=== PATIENT | female | born 1955 | race Caucasian/White ===

== ENCOUNTER 2024-07-25 13:47 | Emergency (ER) | payer MEDICARE, OTHER ==
[~2024-07-25] VITALS: Ht 167.6 cm; Wt 71.0 kg
--- NOTE | 2024-07-25 15:05 | RADIOLOGY REPORT ---
INDICATION: pain TECHNIQUE: 3 views of the lumbar spine were obtained. COMPARISON: None FINDINGS: There are no acute fractures or subluxations. Mild degenerative changes of the spine are noted. IMPRESSION: No acute fracture or subluxation.
--- NOTE | 2024-07-25 16:07 | Physician Documentation ---
History of Present Illness ~ Chief Complaint: Back Pain Stated Complaint: BACK PAIN Time Seen by MD: 14:54 Primary Medical Doctor: Mathew Pappas [facility] HPI 68-year-old female presents to the ED for acute onset left lumbar pain. States that she has been in the process of getting her house in [place], doing excessive outside work. States today she leaned over and injured her lumbar region further Day of Onset: July 25, 2024 Medication Reconciliation Allergies: Coded Allergies: prochlorperazine (Verified Adverse Reaction, Severe, extrapyramidal effects, 07/25/24) Scheduled Cyclobenzaprine HCl (Cyclobenzaprine HCl), 1 TAB PO Q8H Lidocaine (Lidoderm), 1 PATCH TOP DAILY Naproxen (Naproxen), 1 TAB PO Q12H Scheduled PRN Hydrocodone Bit/Acetaminophen 5/325 MG ([place] 5/325 MG), 1 TAB PO Q6H PRN for pain Past Medical History Smoking Status: Never smoker Review of Systems All Other Systems at this time: Reviewed and Negative ROS As stated above in the HPI, otherwise all systems are reviewed and negative. Physical Exam Physical Exam Vital Signs: Temperature: 98.0, Source: Temporal, Heart Rate: 73, Respiratory Rate: 20, BP: 167/82, Pulse Oximetry: 99, Weight: 71.000 Oxygen Flow Rate: 0 Physical Exam General: Alert, no apparent distress. back: tender to lumbar region Respiratory: Lungs clear, no respiratory distress. Neurologic: Oriented x4. Psychiatric: Normal mood and affect. Skin: Normal color, warm and dry. No edema, no ecchymosis. Progress Results/Orders Results/Orders Completed Orders - MATHEW BAH NP Ketorolac Trometh 30mg/Ml Vial (Toradol (07/25/24 15:45) Hydrocodone/Apap 10/325 ([place] 10/325mg (07/25/24 15:45) Lidocaine 5% Patch (Lidoderm 5% Patch) (07/25/24 15:45) Medications Received in ER Medications (Trade) Dose Ordered Sig/Comfort Route PRN Reason Start Time Stop Time Status Last Admin Dose Admin (Toradol inj. 30mg/ml) 30 mg ONCE ONCE IM 07/25/24 15:45 07/25/24 15:47 DC 07/25/24 16:18 30 MG ([place] 10/325mg tab) 1 tab ONCE ONCE PO 07/25/24 15:45 07/25/24 15:47 DC 07/25/24 16:18 1 TAB (Lidoderm 5% Patch) 1 patch NOW ONCE TP 07/25/24 15:45 07/25/24 15:47 DC 07/25/24 16:19 1 PATCH Vital Signs 07/25/24 07/25/24 07/25/24 13:49 15:06 16:15 Temp 98.0 98.0 98.0 Pulse 75 73 68 Resp 16 20 18 B/P (MAP) 167/86 167/82 (110) 155/87 (109) Pulse Ox 99 99 98 O2 Flow Rate 0 0 0 Medical Decision Making Findings Patient presents with acute back pain likely secondary to a lumbar strain from lifting than moving objects in order to move her house her estradiol. He is not have any red flag symptoms denies any numbness does report left-sided sciatica. Going to treat her here an 80 send her home with naproxen and lidocaine patches along with cyclobenzaprine Differential Dx:Considerations: Include: AAA, Aortic dissection, , Appendicitis, Bowel obstruction, Cholelithiasis, Cholangitis, DJD, Ectopic , Fracture, Hepatitis, HNP, Musculoskeletal pain, Pancreatitis, Pyelonephritis, Strain, Urinary obstruction, Urolithiasis, Ovarian torsion, Other Departure Disposition: 01 HOME / SELF CARE / HOMELESS Impression: Primary Impression: Low back pain Additional Impression: Strain of lumbar region Discharge Instructions: Acute Back Pain, Adult, Back Exercises, Lumbosacral Strain Referrals: NO PRIMARY CARE PROVIDER (PCP) Prescriptions Cyclobenzaprine HCl (Cyclobenzaprine HCl) 10 Mg Tablet 1 TAB PO Q8H for muscle spasms for 10 Days, #30 TAB Prov: MATHEW BAH [employer] 07/25/24 Lidocaine (Lidoderm) 5 % Adh..patch 1 PATCH TOP DAILY for 30 Days, #30 PATCH 0 Refills may wear up to 12 hours Prov: MATHEW BAH [employer] 07/25/24 Naproxen (Naproxen) 500 Mg Tablet 1 TAB PO Q12H, #20 TAB Prov: MATHEW BAH [employer] 07/25/24 Hydrocodone Bit/Acetaminophen 5/325 MG ([place] 5/325 MG) 5 Mg/325 Mg Tablet 1 TAB PO Q6H PRN for pain, #14 TAB Prov: MATHEW BAH [employer] 07/25/24 Education Educated: Patient Educated regarding: diagnosis Signature Scribe Signature: ed Attestation: The note accurately reflects work and decisions made by me.Mathew Bah - ANH 07/25/24 16:07 MATHEW BAH NP July 25, 2024 16:06
[2024-07-25 16:15] VITALS: BP 155/87; PULSE 68; RESP 18; TEMP 98; O2SAT 98
[2024-07-25] MEDS: ketorolac trometh 30MG/ML vial 30 MG/ML VIAL IM ONE (16:18)
[2024-07-25] MEDS: HYDROcodone/acetaminophen 10/325mg tab PO ONE (16:18)
[2024-07-25] MEDS: LIDOcaine 5% patch TP ONE (16:19)
[2024-07-25] MEDS ORDERED: LIDO700A32 TOP (16:34)
[2024-07-25] MEDS ORDERED: NAPR-56 PO (16:34)
[2024-07-25] MEDS ORDERED: HYDR-3965 PO (16:34)
[2024-07-25] MEDS ORDERED: CYCL-394 PO (16:53)
== END 2024-07-25 18:51 | disposition home or self-care (01) ==
LOC: ER 13:49
DX: S39.012A Strain of muscle, fascia and tendon of lower back, initial encounter (principal); X58.XXXA Exposure to other specified factors, initial encounter; Y93.89 Activity, other specified; Y92.89 Other specified places as the place of occurrence of the external cause; Y99.8 Other external cause status
CPT/HCPCS: 72100; 96372; 99283; J1885